=== PATIENT | female | born 1990 | race Caucasian/White ===

== ENCOUNTER 2021-09-16 13:56 | Outpatient (CLI) | payer BC, SELFPAY ==
[2021-09-16 16:24] LABS: Iron* 54 ug/dL (37-170)
[2021-09-16 16:49] LABS: Total Iron Binding Capacity 378 ug/dL (265-497)
[2021-09-16 17:27] LABS: Percent Iron Saturation 14 % (20-50)
== END 2021-09-16 13:57 | disposition home or self-care (01) ==
LOC: NFLDREF 13:57
PROVIDERS: PCP Family Medicine; Visit Provider Advanced Practice Midwife
DX: R53.83 Other fatigue (principal)
CPT/HCPCS: 83540; 83550

== ENCOUNTER 2021-10-06 06:34 | Day surgery (SDC) | payer BC, SELFPAY ==
[2021-10-06] VITALS (15 sets, daily range): BP systolic 116–138; BP diastolic 68–82; PULSE 41–68; RESP 16; TEMP 36.4–37.2; O2SAT 93–100; BMI 39.1
[2021-10-06] MEDS: LACTATED RINGERS 1000 ML 1,000 ML 100 ML IV (07:15)
[2021-10-06] MEDS: SODIUM CHLORIDE 0.9 % (FLUSH) 10 ML SYRINGE IVF (07:16)
[2021-10-06 07:19] LABS: Ur HCG Qualitative* Negative (Negative)
[2021-10-06] MEDS: BUPIVACAINE 0.25% 30 ML 20 ML INJECTION (09:27)
--- NOTE | 2021-10-06 09:45 | P.GYNPRC_ITS ---
Procedure Note Date Seen: 10/06/21 Procedure Details: PREOPERATIVE DIAGNOSES: 1. Undesired fertility. POSTOPERATIVE DIAGNOSES: 1. Undesired fertility. PROCEDURE: 1. Laparoscopic bilateral salpingectomies. SURGEON: Mi POWDER LINE REPAIRER: DELFINO ANESTHESIA: General endotracheal. COMPLICATIONS: None. ESTIMATED BLOOD LOSS: Less than 10 mL. FINDINGS: Normal-appearing uterus, fallopian tubes bilaterally, and ovaries bilaterally. DESCRIPTION OF PROCEDURE: After obtaining informed consent, the patient was taken to the operating room where general anesthesia was obtained without difficulty. She was prepared and draped in the normal sterile fashion in the low dorsal lithotomy position. A Cannon catheter was inserted into the bladder and left to gravity drainage. A medium Graves open-sided speculum was introduced into the vagina. The cervix was visualized and grasped along its anterior lip with an a single-toothed tenaculum. A uterine manipulator was placed without difficulty. The Allis tenaculum and speculum were removed. I then changed gloves and my attention was turned to the abdomen. The inferior aspect of the umbilical fold was injected with 0.25% Marcaine plain. A 5 mm vertical incision was then made within the umbilical fold using a scalpel. The subcutaneous tissues were bluntly dissected with a Brenda clamp to the fascia. A direct entry technique was used to place a 5 mm laparoscopic port with CO2 gas set to a 5 mmHg. The trocar was removed leaving the sleeve in place. The CO2 gas flow was turned to high flow to achieve pneumoperitoneum. The 5 mm laparoscope was used then to carefully inspect the abdomen and pelvis with findings noted above. Pictures were taken for documentation purposes. The patient was placed in Trendelenburg positioning. Two additional 5 mm ports were placed in the right and left lower quadrants under direct visualization after first anesthetizing the skin and fascia with 0.25% Marcaine plain. The uterus was elevated using the uterine manipulator. The bowels were gently pushed from the pelvis cephalad. The fallopian tubes were then each identified to the fimbrial ends, elevated and fulgurated in a wide swath in the midline and then also transected within the fulgurated area. All instruments were then removed under direct visualization. Pneumoperitoneum was allowed to escape. The skin at all 3 port sites was closed in a subcuticular fashion with 4-0 Vicryl. LiquiBand was then placed over the incisions. The uterine manipulator and Cannon catheter were removed. The patient tolerated the procedure well. Sponge, lap, and needle counts were correct x2. The patient was taken to the recovery room awake and in stable condition.
--- NOTE | 2021-10-06 09:46 | W.ANESCHARGE ---
Anesthesia Charges Start Date/Time Anesthesia Start Date: 10/06/21 Anesthesia Start Time: 08:08 Stop Date/Time Anesthesia Stop Date: 10/06/21 Anesthesia Stop Time: 09:45 Summary Emergency: No
--- NOTE | 2021-10-06 10:04 | SUR.PHASEI ---
noting pts hr 40's bps good 138/79 o2 sat 99% pt denies any chest pain sob pre-op hr 68
--- NOTE | 2021-10-06 10:13 | SUR.PHASEI ---
talked to Ada Bardales MDA regarding heart rate, he is aware and no orders given
--- NOTE | 2021-10-06 10:41 | W.ANESCHARGE ---
Anesthesia Charges Start Date/Time Anesthesia Start Date: 10/06/21 Anesthesia Start Time: 08:08 Stop Date/Time Anesthesia Stop Date: 10/06/21 Anesthesia Stop Time: 09:45 Summary Emergency: No
== END 2021-10-06 11:55 | disposition home or self-care (01) ==
PROVIDERS: PCP Family Medicine; Visit Provider Obstetrics & Gynecology
PROC: (CPT 58661; principal; 2021-10-06 08:00)
DX: Z30.2 Encounter for sterilization (principal)
CPT/HCPCS: 58661; 00840; 00851; 81025; 88302; J0330; J1100; J1200; J1885; J2405; J2704; J2710; J3010; J3490; J7120

== ENCOUNTER 2022-04-28 11:34 | Outpatient (CLI) | payer BC, SELFPAY ==
[2022-04-28 17:38] LABS: Chloride* 105 mmol/L (96-114); Potassium* 4.3 mmol/L (3.6-5.1); Sodium* 139 mmol/L (135-149)
[2022-04-28 17:41] LABS: Creatinine* 0.7 mg/dL (0.5-1.5); Estimated Glomerular Filt Rate 118 ml/min
[2022-04-28 17:42] LABS: Blood Urea Nitrogen* 17 mg/dL (5-24); Calcium* 9.5 mg/dL (8.4-10.6); Carbon Dioxide* 26 mmol/L (20-32); Glucose* 92 mg/dL (60-115)
[2022-04-28 17:45] LABS: C Reactive Protein* 0.9 mg/dL (0.5-1.0)
[2022-04-28 19:00] LABS: Erythrocyte SedimentationRate* 16 mm/hr (2-20)
== END 2022-04-28 11:35 | disposition home or self-care (01) ==
PROVIDERS: PCP Family Medicine; Visit Provider Family Medicine
DX: R51.9 Headache, unspecified (principal)
CPT/HCPCS: 80048; 85651; 86140

== ENCOUNTER 2023-12-11 09:29 | Outpatient (CLI) | payer BC, SELFPAY ==
--- OUTSIDE RECORDS SUMMARY | 2023-12-14 05:16 | XMS_ITS | Clinical Summary ---
Author Organization [employer] [facility] Address [place], [place] [address] Care Team Providers Care Appraiser Name Role Phone Pcp, No Primary Care Provider Unavailabl e Allergies Active Allergy Reactions Criticality Noted Date Comments Blood-Group Specific Substance Other - Describe In Comment Field 06/13/2021 Patient has passive D antibody. Blood products may be delayed. Draw patient 24 hours prior to transfusion. For [facility] testing, draw one red top and two purple top tubes for all Type and Screen orders. Medications Medication Sig Dispensed Refills Start Date End Date Status Heartburn Relief, famotidine, 10 mg tablet Take 10 mg by mouth 2 times daily. 05/18/2021 Active SUMAtriptan (IMITREX) 100 mg tablet TAKE 1 TABLET BY MOUTH NEEDED AT ONSET OF HEADACHE. MAY REPEAT AFTER 2 HOURS . MAXIMUM DAILY DOSE IS 200 MG 03/19/2021 Active 25/iron fum/folic/dha (-1 ORAL) Take 1 Tablet by mouth once daily. Active Active Problems Problem Noted Date Diagnosed Date Hx of migraines 06/12/2021 Gastroesophageal reflux disease without esophagi tis 06/12/2021 Vaginal bleeding in , third trimester Immunizations Name Administration Dates Next Due COVID-19 vaccine (Sensulin 30mcg/0.3mL) AYLIN Winters 01/16/2021,12/25/2020 Influenza, IIV4 12/25/2020 Tdap 05/25/2021,03/22/2018 Social History Tobacco Use Types Packs/Day Years Used Date Smoking Tobacco: Never Smokeless Tobacco: Never Alcohol Use Standard Drinks/Week Comments Not Currently 0 (1 standard drink = 0.6 oz pur e alcohol) none during Sex and Gender Information Value Date Recorded Sex Assigned at Not on file Gender Identity Not on file Sexual Orientation Not on file Obstetrics History Para Term AB IAB SAB Ectopic Multiple Livin g Live Births 2 1 1 1 1 Date Outcome GA Total Labor Labor/2nd/3rd Weight Sex Type Anes PTL Donna A1 A5 Name Clin 019 Term 40w 0d 4.14 kg (9 lb 2 oz) F Vag Epidur al N Livin g Delivery Location:[place] [facility] Last Filed Vital Signs Vital Sign Reading Time Taken Comments Blood Pressure 136/77 06/14/2021 7:50 AM CDT Pulse 78 06/14/2021 7:50 AM CDT Temperature 36.8 ??C (98.3 ??F) 06/14/2021 7:50 AM CD T Respiratory Rate 16 06/14/2021 7:50 AM CDT Oxygen Saturation 97% 06/14/2021 7:50 AM CDT Inhaled Oxygen Concentration - - Weight 119.3 kg (263 lb) 06/13/2021 8:00 AM CDT Height 172.7 cm (5' 8) 06/13/2021 8:10 AM CDT Body Mass Index 39.99 06/13/2021 8:00 AM CDT Plan of Treatment Health Maintenance Due Date Last Done Comments Depression screening for age 12+ 2001 BMI (ht and wt on same day) for age 18+ 09/23/2007 Hepatitis C screening for age 18-79 09/23/2007 COVID-19 vaccine series ( season) 2022 01/16/2021, 12/25/2020 Influenza for age 9-49 11/12/2022 12/25/2020 Pap test for age 21-65 09/16/2024 , 09/16/2021, 07/12/2018, Additional history exists Tetanus booster 05/26/2031 05/25/2021, 03/22/2018 HIV for age 15-65 Completed 12/25/2020 Tdap Completed 05/25/2021, 03/22/2018 Pneumococcal series for age 6-64 Aged Out No longer eligible based on patient's age to complete this topic Procedures Procedure Name Priority Date/Time Associated Diagnosis Comments HPV HIGH RISK Routine 09/16/2021 1:55 PM CDT HIV EXTERNAL Routine 12/25/2020 from Last 3 Months or Most Recently Relevant to Health Maintenance Results * HPV HIGH RISK (09/16/2021 1:55 PM CDT) TYPE 16 Negative Negative 09/21/2021 2:40 PM CDT [facility] TRAL LABORATORY TYPE 18 Negative Negative 09/21/2021 2:40 PM CDT [facility] TRAL LABORATORY OTHER HIGH RISK TYPES Negative Negative 09/21/2021 2:40 PM CDT [facility] Other (Cervical) 09/16/2021 1:55 PM CDT 09/17/2021 7:09 PM CDT Narrative [facility] - 09/21/2021 2:40 PM CDT HPV types 16, 18, 31, 33, 35, 39, 45, 51, 52, 56, 58, 59, 66 and 68 DNA were undetectable or below the pre-set threshold. Methodology: Miah Kane 4800 HPV Test Marva Li CNM MICROBIOLOGY [facility] [address] [place] [address], * HIV EXTERNAL (12/25/2020) EXTERNAL HIV Negative [facility] Blood BLOOD SPECIMEN / Unknown Doctor Unknown LABORATORY [facility] [address] [place] [address] from Last 3 Months or Most Recently Relevant to Health Maintenance Advance Directives * Full Code (Latest Code Status on File) Date Activated Date Inactivated Comments 06/12/2021 6:16 PM 06/14/2021 2:29 PM Question Answer Comments Code Status Discussion: Reviewed Preferences Care Teams Appraiser Relationship Specialty Start Date End Date Pcp, No . PCP - General 06/12/21
== END 2023-12-11 09:30 | disposition home or self-care (01) ==
LOC: NFLDREF 12-14 05:14
PROVIDERS: PCP Family Medicine; Referring Provider Family Medicine; Visit Provider Nurse Practitioner
DX: N30.00 Acute cystitis without hematuria (principal)
CPT/HCPCS: 87086

== ENCOUNTER 2024-01-13 08:50 | Outpatient (CLI) | payer BC, SELFPAY ==
--- OUTSIDE RECORDS SUMMARY | 2024-01-13 08:54 | XMS_ITS | Clinical Summary ---
Author Organization [employer] [facility] Address [place], [place] [address] Care Team Providers Care Commercial Loan Administrator Name Role Phone Pcp, No Primary Care Provider Unavailabl e Allergies Active Allergy Reactions Criticality Noted Date Comments Blood-Group Specific Substance Other - Describe In Comment Field 06/13/2021 Patient has passive D antibody. Blood products may be delayed. Draw patient 24 hours prior to transfusion. For Gobble testing, draw one red top and two [...] Name Administration Dates Next Due COVID-19 vaccine (IndiaMART 30mcg/0.3mL) AYLIN Winters 01/16/2021,12/25/2020 Influenza, IIV4 12/25/2020 [...] Vag Epidur al N Livin g Delivery Location:[place] [facility] Last Filed Vital Signs [...] 18-79 09/23/2007 COVID-19 vaccine series ( season) 2023 01/16/2021, 12/25/2020 Influenza for age 9-49 11/13/2023 12/25/2020 Pap test for age 21-65 09/16/2024 [...] 16 Negative Negative 09/21/2021 2:40 PM CDT [facility] TRAL LABORATORY TYPE 18 Negative Negative 09/21/2021 2:40 PM CDT [facility] TRAL LABORATORY OTHER HIGH RISK TYPES Negative Negative 09/21/2021 2:40 PM CDT [facility] Other (Cervical) 09/16/2021 1:55 PM CDT 09/17/2021 7:09 PM CDT Narrative [facility] - 09/21/2021 2:40 PM CDT HPV types 16, 18, 31, 33, 35, 39, 45, 51, 52, 56, 58, 59, 66 and 68 DNA were undetectable or below the pre-set threshold. Methodology: Miah Kane 4800 HPV Test Marva Li CNM MICROBIOLOGY [facility] [address] [place] [address], * HIV EXTERNAL (12/25/2020) EXTERNAL HIV Negative [facility] Blood BLOOD SPECIMEN / Unknown Doctor Unknown LABORATORY [facility] [address] [place] [address] from Last 3 Months or Most Recently Relevant to Health Maintenance Advance Directives * Full Code (Latest Code Status on File) Date Activated Date Inactivated Comments 06/12/2021 6:16 PM 06/14/2021 2:29 PM Question Answer Comments Code Status Discussion: Reviewed Preferences Care Teams Commercial Loan Administrator Relationship Specialty Start Date End Date Pcp, No . PCP - General 06/12/21
== END 2024-01-13 08:51 | disposition home or self-care (01) ==
PROVIDERS: PCP Registered Nurse; Visit Provider Registered Nurse
DX: G43.009 Migraine without aura, not intractable, without status migrainosus (principal); Z13.228 Encounter for screening for other metabolic disorders; Z13.220 Encounter for screening for lipoid disorders; Z13.29 Encounter for screening for other suspected endocrine disorder
CPT/HCPCS: 80053; 80061; 84439; 84443

== ENCOUNTER 2024-04-15 12:44 | Emergency (ER) | payer BC, SELFPAY ==
--- OUTSIDE RECORDS SUMMARY | 2024-04-15 12:46 | XMS_ITS | Clinical Summary ---
Author Organization [employer] [facility] Address [place], [place] [address] Care Team Providers Care Correspondent Name Role Phone Pcp, No Primary Care Provider Unavailabl e Allergies Active Allergy Reactions Criticality Noted Date Comments Blood-Group Specific Substance Other - Describe In Comment Field 06/13/2021 Patient has passive D antibody. Blood products may be delayed. Draw patient 24 hours prior to transfusion. For [facility] testing, draw one red top and two purple top tubes for all Type and Screen orders. 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 Gender Identity Not on file Sexual Orientation Not on file Obstetrics History Para Term AB IAB SAB Ectopic Multiple Livin g Live Births 2 1 1 1 1 Date Outcome GA Total Labor Labor/2nd/3rd Weight Sex Type Anes PTL Donna A1 A5 Name Clin 019 Term 40w 0d 4.14 kg (9 lb 2 oz) F Vag Epidur al N Livin g Delivery Location:[place] [facility] Last Filed Vital Signs Vital Sign Reading Time Taken Comments Blood Pressure 136/77 06/14/2021 7:50 AM CDT Pulse 78 06/14/2021 7:50 AM CDT Temperature 36.8 C (98.3 F) 06/14/2021 7:50 AM CDT Respiratory Rate 16 06/14/2021 7:50 AM CDT [...] Completed 05/25/2021, 03/22/2018 Pneumococcal series for age 6-49 Aged Out No longer eligible based on patient's age to complete this topic Procedures Procedure Name Priority Date/Time Associated Diagnosis Comments HPV HIGH RISK Routine 09/16/2021 1:55 PM CDT HIV EXTERNAL Routine 12/25/2020 from Last 3 Months or Most Recently Relevant to Health Maintenance Results * HPV HIGH RISK (09/16/2021 1:55 PM CDT) TYPE 16 Negative Negative 09/21/2021 2:40 PM CDT [facility] TRAL LABORATORY TYPE 18 Negative Negative 09/21/2021 2:40 PM CDT [facility] TRAL LABORATORY OTHER HIGH RISK TYPES Negative Negative 09/21/2021 2:40 PM CDT [facility] Other (Cervical) 09/16/2021 1:55 PM CDT 09/17/2021 7:09 PM CDT Narrative [facility] - 09/21/2021 2:40 PM CDT HPV types 16, 18, 31, 33, 35, 39, 45, 51, 52, 56, 58, 59, 66 and 68 DNA were undetectable or below the pre-set threshold. Methodology: Miah Kane 4800 HPV Test Marva BECERRIL MICROBIOLOGY Final Resul t [facility] [address] [place] [address], * HIV EXTERNAL (12/25/2020) EXTERNAL HIV Negative [facility] Blood BLOOD SPECIMEN / Unknown Doctor Unknown LABORATORY Final Result [facility] [address] [place] [address] from Last 3 Months or Most Recently Relevant to Health Maintenance Insurance [facility] Advance Directives * Full Code (Latest Code Status on File) Date Activated Date Inactivated Comments 06/12/2021 6:16 PM 06/14/2021 2:29 PM Question Answer Comments Code Status Discussion: Reviewed Preferences Care Teams Correspondent Relationship Specialty Start Date End Date Pcp, No . PCP - General 06/12/21
[2024-04-15 12:54] VITALS: BP 145/90; PULSE 81; RESP 20; TEMP 36.4; O2SAT 96; BMI 36.2
--- NOTE | 2024-04-15 13:53 | ED_ITS ---
HPI - General Adult General Chief complaint: Chest Pain Stated complaint: chest pressure, dizzy Time Seen by Provider: 04/15/24 12:53 History of Present Illness HPI narrative: This 33-year-old female comes in reporting some chest discomfort in her sternum area. She states that is not really pain. This began yesterday. She has been having some other feelings of lightheadedness and discomfort that she attributes to phentermine which she has been taking for the past 3 months. She states that she has lost 20 lb while taking this medicine but discontinued it 4 days ago because she did not care for some of its adverse effects. She does not report any nausea, vomiting, shortness of breath, diaphoresis, or exercise intolerance. She does state that she gets lightheaded at times if she stands up too quickly. She can reproduce her chest discomfort a bit when taking a deep breath. Related Data Home Medications ?Medication ?Instructions ?Recorded ?Confirmed cyclobenzaprine 5 mg tablet 5 mg PO PRN 01/13/24 02/13/24 Previous Rx's ?Medication ?Instructions ?Recorded phentermine 15 mg capsule 15 mg PO QDAY #30 caps 01/13/24 sumatriptan succinate 100 mg tablet See Rx Instructions PO .COMPLEX 01/13/24 #14 tabs Allergies Allergy/AdvReac Type Severity Reaction Status Date / Time No Known Allergies Allergy Verified 02/13/24 15:31 Review of Systems Status of ROS: Reports: 10 or more systems reviewed and unremarkable except as noted in History and below Narrative: Constitutional: No fevers, no weight gain or loss. Eyes: No discharge. No vision changes. HENT: No congestion, no sore throat, no ear pain. Cardiovascular: No palpitations. Respiratory: No shortness of breath, no wheezes, no cough. Gastrointestinal: No abdominal pain, no vomiting, no diarrhea. Genitourinary: No dysuria, no hematuria. Musculoskeletal: Normal range of motion. Skin: No rashes, no pruritis. Neurological: No dizziness, weakness, sensory change, speech change. Endo/Heme/Allergies: No bruising or bleeding. No polydipsia. Pysch: no suicidality, no anxiety, no insomnia. All other systems reviewed and are negative. [facility] Medical History Obesity (BMI 30-39.9) ?E66.9 - Obesity, unspecified (ICD-10) Migraine headache ?G43.909 - Migraine, unspecified, not intractable, without status migrainosus (ICD-10) Paresthesia of both legs ?R20.2 - Paresthesia of skin (ICD-10) hypertension ?O16.5 - Unspecified maternal hypertension, complicating the puerperium (ICD- 10) Surgical History Retained placenta (07/2021) ?O73.0 - Retained placenta without hemorrhage (ICD-10) Status post bilateral salpingectomy (10/06/21) ?Z90.79 - Acquired absence of other genital organ(s) (ICD-10) S/P laparoscopy ?Z98.890 - Other specified postprocedural states (ICD-10) Family History Maternal Grandfather Diabetes Alzheimers disease, Onset Age: 80 Maternal Grandmother Alzheimers disease Social History Narrative: , 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, 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 Lifetime nonsmoker Rare alcohol use No drug use Exercises 3 -4 times a week at [facility] fitness strength training Smoking Status: Never smoker Do you use any of these nicotine containing products: None Second hand tobacco smoke exposure: No How often do you have a drink containing alcohol: monthly or less How many standard drinks containing alcohol do you have on a typical day: 1 or 2 How often do you have six or more drinks on one occasion: Never AUDIT-C Alcohol total score: 1 Non-prescribed substance use: denies use Caffeine: Yes service: No Exam Narrative: Exam Narrative: Constitutional: Well-developed, well-nourished, no acute distress. HEENT: Normocephalic, atraumatic. Neck: Normal range of motion. Nontender. Supple. Heart: Regular. No murmurs. Normal rate. Intact distal pulses. Lungs: Clear to auscultation. No chest discomfort. No wheezes, rhonchi, or rales. Abdomen: Normal bowel sounds. Nontender. No rebound tenderness. Genitalia: Deferred. Back: No midline tenderness. Normal range of motion. Extremities: Normal range of motion. No injury. Skin: Intact. No rash. Warm. No erythema or pallor. Neurologic: No altered sensation. No weakness. Alert and oriented. Psychiatric: No suicidality. No anxiety or depression. No insomnia. Nursing notes and vitals signs are reviewed. Const: Vital Signs, click to edit/add: Vital Signs - 24 hr 04/15/24 12:54 Temperature 97.6 F Pulse Rate [Pulse Oximeter] 81 Respiratory Rate 20 Blood Pressure [Ri ght Forearm] 145/90 H Pulse Oximetry 96 Oxygen Delivery Me thod Room Air Course Vital Signs Vital signs: Initial Vital Signs Temperature 97.6 F 04/15/24 12:54 Temperature Source Temporal Artery Scan 04/15/24 12:54 Pulse Rate 81 04/15/24 12:54 Pulse Rhythm Regular 04/15/24 12:54 Respiratory Rate 20 04/15/24 12:54 Blood Pressure 145/90 H 04/15/24 12:54 Blood Pressure Mean 108 H 04/15/24 12:54 Blood Pressure Position High-Fowlers 04/15/24 12:54 Pulse Oximetry 96 04/15/24 12:54 Oxygen Delivery Method Room Air 04/15/24 12:54 Vital Signs Temperature 97.6 F 04/15/24 12:54 Pulse Rate 81 04/15/24 12:54 Respiratory Rate 20 04/15/24 12:54 Blood Pressure 145/90 H 04/15/24 12:54 Pulse Oximetry 96 04/15/24 12:54 Oxygen Delivery Method Room Air 04/15/24 12:54 Temperature 97.6 F 04/15/24 12:54 Pulse Rate 81 04/15/24 12:54 Respiratory Rate 20 04/15/24 12:54 Blood Pressure 145/90 H 04/15/24 12:54 Pulse Oximetry 96 04/15/24 12:54 Oxygen Delivery Method Room Air 04/15/24 12:54 Medical Decision Making MDM Narrative Medical decision making narrative: This patient comes in reporting some chest discomfort that she does not describe as pain. It is in the sternal area. She debated whether she needs to come in because the symptoms are not very prominent. She did recently discontinue her weight loss medication and has a follow-up appointment with her primary physician including labs this week. An EKG is obtained and shows normal sinus rhythm without any ST or T-wave abnormalities. Her signs and symptoms are not very suspicious for and intrathoracic cause of her discomfort. I did discuss lab and imaging options which she declined in a process of shared decision making. She is scheduled to have labs drawn tomorrow and prefers to keep that appointment and follow up with her doctor few days later. ECG Data Attestation: I personally reviewed and interpreted this ECG as follows: Interpretation: Normal sinus rhythm. Rate is 72 beats per minute. There are no ST or T-wave abnormalities. Discharge Plan Discharge Clinical Impression: Atypical chest pain Patient Disposition: Home, Self-Care Condition: Stable Additional Instructions: Follow-up with lab appointment and MD appointment this week as scheduled. Return if worsening. Prescriptions: No Action cyclobenzaprine 5 mg tablet 5 mg PO PRN sumatriptan succinate 100 mg tablet See Rx Instructions PO .COMPLEX Qty: 14 3RF Rx Instructions: take 1 tab at onset of headache; if no relief, may repeat 1 tab after at least 2 hrs; max = 2 tabs/24 hrs PO phentermine 15 mg capsule 15 mg PO QDAY Qty: 30 2RF Rx Instructions: must administer 2 hours after breakfast Follow Up/Referrals: Angeles Lomas, EMPLOYEE RELATIONS SPECIALIST [Primary Care Provider] - Stand Alone Forms: Modern Feed Info Instructions
--- OUTSIDE RECORDS SUMMARY | 2024-04-15 14:10 | XMS_ITS | Clinical Summary ---
Author Organization [employer] [facility] [employer] [facility] Address [place], [place] [address] Care Team Providers Care Swimming Pool Maintenance Supervisor Name Role Phone Pcp, No Primary Care Provider Unavailabl e Allergies Active Allergy Reactions Criticality Noted Date Comments Blood-Group Specific Substance Other - Describe In Comment Field 06/13/2021 Patient has passive D antibody. Blood products may be delayed. Draw patient 24 hours prior to transfusion. 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 Gender Identity Not on file Sexual Orientation Not on file Obstetrics History Para Term AB IAB SAB Ectopic Multiple Livin g Live Births 2 1 1 1 1 Date Outcome GA Total Labor Labor/2nd/3rd Weight Sex Type Anes PTL Donna A1 A5 Name Clin 019 Term 40w 0d 4.14 kg (9 lb 2 oz) F Vag Epidur al N Livin g Delivery Location:[place] [facility] Last Filed Vital Signs [...] 16 Negative Negative 09/21/2021 2:40 PM CDT [facility] TRAL LABORATORY TYPE 18 Negative Negative 09/21/2021 2:40 PM CDT [facility] TRAL LABORATORY OTHER HIGH RISK TYPES Negative Negative 09/21/2021 2:40 PM CDT [facility] Other (Cervical) 09/16/2021 1:55 PM CDT 09/17/2021 7:09 PM CDT Narrative [facility] - 09/21/2021 2:40 PM CDT HPV types 16, 18, 31, 33, 35, 39, 45, 51, 52, 56, 58, 59, 66 and 68 DNA were undetectable or below the pre-set threshold. Methodology: Miah Kane 4800 HPV Test Marva BECERRIL MICROBIOLOGY Final Resul t [facility] [address] [place] [address], * HIV EXTERNAL (12/25/2020) EXTERNAL HIV Negative [facility] Blood BLOOD SPECIMEN / Unknown Doctor Unknown LABORATORY Final Result [facility] [address] [place] [address] from Last 3 Months or Most Recently Relevant to Health Maintenance Insurance [facility] Advance Directives * Full Code (Latest Code Status on File) Date Activated Date Inactivated Comments 06/12/2021 6:16 PM 06/14/2021 2:29 PM Question Answer Comments Code Status Discussion: Reviewed Preferences Care Teams Swimming Pool Maintenance Supervisor Relationship Specialty Start Date End Date Pcp, No . PCP - General 06/12/21
== END 2024-04-15 14:13 | disposition home or self-care (01) ==
LOC: ED 14:08
PROVIDERS: Emergency Provider Emergency Medicine Emergency Medical Services; PCP Registered Nurse
DX: R07.89 Other chest pain (principal)
CPT/HCPCS: 93005; 99284

== ENCOUNTER 2024-04-16 15:10 | Outpatient (CLI) | payer BC, SELFPAY | END 2024-04-16 15:11 | disposition home or self-care (01) | LOC: NFLDREF 04-18 00:55 | PROVIDERS: PCP Registered Nurse; Referring Provider Registered Nurse; Visit Provider Registered Nurse | DX: R07.89 Other chest pain (principal); E66.9 Obesity, unspecified | CPT/HCPCS: 80053; 84439; 84443 ==

== ENCOUNTER 2025-01-14 08:47 | Outpatient (CLI) | payer BC, SELFPAY | END 2025-01-14 08:48 | disposition home or self-care (01) | LOC: NFLDREF 01-17 11:26 | PROVIDERS: PCP Family Medicine; Referring Provider Family Medicine; Visit Provider Family Medicine | DX: Z00.00 Encounter for general adult medical examination without abnormal findings (principal) | CPT/HCPCS: 80061; 82947 ==